=== PATIENT | female | born 1965 | race Caucasian/White ===

== ENCOUNTER 2018-06-18 22:51 | Emergency (ER) | payer OTHER ==
[~2018-06-18] VITALS: Ht 157.5 cm; Wt 68.0 kg
[2018-06-18 23:00] VITALS: Ht 157.5 cm; Wt 68.0 kg
[2018-06-19 00:36] VITALS: BP 113/66
== END 2018-06-19 00:36 | disposition home or self-care (01) ==
LOC: ED 22:51
DX: R51 Headache (principal)
CPT/HCPCS: J0780